=== PATIENT | male | born 1990 | race Caucasian/White ===

== ENCOUNTER → 2021-08-29 | Outpatient (CLI) | payer OTHER ==
--- NOTE | 2021-08-29 16:55 | CARD ---
MR#: [id number] Date of Study: 08/29/2021 Ordering Physician: YECENIA ROCHA, Referring Physician: YECENIA ROCHA, Tech: Anny Mcbride, [facility] APPROVED REPORT EXAM: Two-dimensional and M-mode echocardiogram with Doppler and color Doppler. Other Information Quality : AverageHR: 67bpm INDICATION Abnormal ECG 2D DIMENSIONS RVDd2.9 (2.9-3.5cm)Left Atrium(2D)3.2 (1.6-4.0cm) IVSd0.9 (0.7-1.1cm)Aortic Root(2D)3.3 (2.0-3.7cm) LVDd4.8 (3.9-5.9cm)LVOT Diameter2.1 (1.8-2.4cm) PWd0.9 (0.7-1.1cm)LVDs3.0 (2.5-4.0cm) FS (%) 36.8 %SV70.4 ml LVEF(%)66.6 (>50%) Aortic Valve AoV Peak Tray.96.4cm/sAoV VTI18.7cm AO Peak GR.3.7mmHgLVOT Peak Tray.83.6cm/s LVOT VTI 15.29cmAO Mean GR.2mmHg CARSON (VMAX)2.62hu8PZL (VTI)2.77cm2 Mitral Valve MV E Ggepafhy70.4cm/sMV DECEL QRUU125jh MV A Fycjfekd63.4cm/sMV E Mean Gr.1mmHg MV APX54ecH/A Ratio1.6 MVA (PHT)3.16cm2 TDI E/Lateral E'6.7E/Medial E'9.0 Pulmonary Valve PV Peak Tpbusiuy60.7cm/sPV Peak Grad.3mmHg Tricuspid Valve TR P. Aygrlbsy382rm/sRAP DOFRJMGI6njOv TR Peak Gr.02otDvJZUG41ppMt Pulmonary Vein S1 Hifbsyjk16.1cm/sD2 Nwqbwatc27.5cm/s LEFT VENTRICLE The left ventricle is normal size. There is normal left ventricular wall thickness. The left ventricu lar systolic function is normal. The Ejection Fraction is 55-60%. There is normal LV segmental wall m otion. The left ventricular diastolic function and filling is normal for age. RIGHT VENTRICLE The right ventricle is normal size. There is normal right ventricular wall thickness. The right ventr icular systolic function is normal. ATRIA The left atrium size is normal. The right atrium size is normal. The interatrial septum is intact wit h no evidence for an atrial septal defect or patent foramen ovale as noted on 2-D or Doppler imaging. AORTIC VALVE The aortic valve is normal in structure and function. Doppler and Color Flow revealed trace aortic re gurgitation. There is no significant aortic valvular stenosis. Calculated aortic valve area is 2.72 c m2 with maximum pressure gradient of 5 mmHg and mean pressure gradient of 3 mmHg. MITRAL VALVE The mitral valve is normal in structure and function. There is no evidence of mitral valve prolapse. There is no mitral valve stenosis. Doppler and Color-flow revealed trace mitral regurgitation. TRICUSPID VALVE The tricuspid valve is normal in structure and function. Doppler and Color Flow revealed trace tricus pid regurgitation with an estimated PAP of 25 mmHg. There is no tricuspid valve stenosis. PULMONIC VALVE The pulmonic valve is not well visualized. Doppler and Color Flow revealed trace pulmonic valvular re gurgitation. GREAT VESSELS The aortic root is normal in size. The ascending aorta is normal in size. The IVC is normal in size a nd collapses >50% with inspiration. PERICARDIAL EFFUSION There is no evidence of significant pericardial effusion. Critical Notification Critical Value: No <Conclusion> The left ventricular systolic function is normal. The Ejection Fraction is 55-60%. There is normal LV segmental wall motion. Trace mitral regurgitation. Trace tricuspid regurgitation with an estimated PAP of 25 mmHg. There is no evidence of significant pericardial effusion. Signed by : Russ Solares, Electronically Approved : 08/29/2021 16:54:55
== END ==
LOC: ECHO 09:41
PROVIDERS: ATTEND Physician Assistant Medical
DX: R94.31 Abnormal electrocardiogram [ECG] [EKG] (principal)
CPT/HCPCS: 93306